=== PATIENT | female | born 1970 | race Caucasian/White ===

== ENCOUNTER 2016-07-23 13:33 | Emergency (ER) | END 2016-07-23 13:52 | disposition left against medical advice (07) | LOC: ED 13:33 | DX: J02.9 Acute pharyngitis, unspecified (principal) ==

== ENCOUNTER 2016-07-24 13:48 | Emergency (ER) ==
[2016-07-24 13:54] VITALS: BP 136/66
--- NOTE | 2016-07-24 15:01 | PROVIDER DOCUMENTATION ---
HPI-EENT General - General Chief Complaint: Flu Symptoms Stated Complaint: sore throat/headache Time Seen by Provider: 07/24/16 14:55 Source: patient Allergies/Adverse Reactions: Patient Allergies Allergy/AdvReac Type Severity Reaction Status Date / Time acetaminophen Allergy NAUSEA Verified 09/27/15 10:18 [From Darvocet-N] propoxyphene napsylate * Allergy NAUSEA Verified 09/27/15 10:18 [From Darvocet-N] azithromycin AdvReac Unknown Verified 09/27/15 10:18 [From Zithromax Z-Tom] tramadol HCl * [From Ultram] AdvReac NAUSEA Verified 09/27/15 10:18 steroids AdvReac ABDOMINAL Uncoded 05/29/16 13:09 PAIN Home Medications: Home Medication List Medication Instructions Recorded Confirmed Last Taken Type Levothyroxine [Synthroid] 75 mg PO DAILY 06/24/15 09/27/15 08/28/15 History Pantoprazole [Protonix] 40 mg PO DAILY 06/24/15 09/27/15 08/28/15 History Acetaminophen with Codeine 1 each PO Q6H PRN PRN #14 tablet 09/27/15 Unknown Rx [Tylenol with Codeine #3 Tablet] Gabapentin [Neurontin] 300 mg PO 5XDAY 09/27/15 09/27/15 Unknown History Ketorolac [Toradol] 10 mg PO Q6H PRN PRN #20 tablet 09/27/15 Unknown Rx Amoxicillin [Amoxil] 875 mg PO BID #14 tablet 05/29/16 Unknown Rx Guaifen/Dextromethorphan/PE 1 each PO TID #30 tablet 05/29/16 Unknown Rx [Deconex Dmx Tablet] Methylprednisolone [Medrol Dosepak] 4 mg PO DIRECTED #1 package 05/29/16 Unknown Rx Amoxicillin [Amoxil] 500 mg PO BID #20 capsule 07/24/16 Unknown Rx - History of Present Illness-EENT General Nature of Presenting Problem: 46 y/o WF c/o 3 days of sore throat and ear pain. Denies sick contacts. denies cough, congestion or sob. EENT Location: reports: ear (R), ear (L), throat Quality of Pain: reports: aching, stabbing Severity: reports: mild Onset/Duration: reports: 4 days ago Timing: reports: still present Prearrival Treatment: Initiated no prearrival treatment Associated Symptoms: reports: sore throat. denies: change in hearing, cough, drooling, ear drainage, facial pain/swelling, fever, malaise, nasal congestion/ drainage, poor fluid intake, poor solids intake, sinus infection, tooth pain, voice change Review of Systems - Adult - REVIEW OF SYSTEMS - ADULT Constitutional: reports: no symptoms reported. denies: chills, fever, fatique Eyes: reports: no symptoms reported. denies: decreased vision, blurred vision, double vision, eye pain Ears, Nose, Mouth & Throat: reports: see HPI, ear pain, throat pain. denies: sinus problem, nose pain Cardiovascular: reports: no symptoms reported. denies: chest pain Respiratory: reports: no symptoms reported. denies: cough, shortness of breath Gastrointestinal: reports: no symptoms reported. denies: abdominal pain, diarrhea, nausea, vomiting Genitourinary: reports: no symptoms reported. denies: frequency Musculoskeletal: reports: no symptoms reported. denies: muscle aches Integumentary: reports: no symptoms reported. denies: rash Neurological: reports: no symptoms reported. denies: headache/migraines Psychiatric: reports: no symptoms reported Endocrine: reports: no symptoms reported Hematologic/Lymphatic: reports: no symptoms reported Allergic/Immunologic: reports: no symptoms reported All Other Systems: Reviewed and Negative Past History - Adult - PAST MEDICAL HISTORY-ADULT Review of Records: reports: Old Records Reviewed, Nursing Assessment Review, Medications Reviewed, Social history reviewed & non-contributory. Major Childhood Illnesses: reports: denies history Cardiovascular: reports: denies history Respiratory: reports: denies history Gastrointestinal: reports: GERD Obstetrical/Gynecological: reports: denies history Genitourinary: reports: denies history Musculoskeletal: reports: chronic pain, fibromyalgia, neck/back injury Neurological: reports: headaches/migraines, past injury (back pain) Endocrine/Immune: reports: thyroid disorder Other Conditions: reports: denies history - PRIOR SURGERIES/PROCEDURES Surgical/Procedure History: reports: appendectomy, cholecystectomy, hysterectomy , tonsillectomy - IMMUNIZATION STATUS Childhood Immunizations: See Nurse Assessment Flu Vaccine: See Nurse Assessment - FAMILY HISTORY Family History: reviewed, not pertinent - SOCIAL HISTORY Smoking: denies Substance Use: none/never Alcohol Use Frequency: never Physical Exam- EENT - Physical Exam EENT Initial Vital Signs Reviewed: Yes General Appearance: appears well, alert, no apparent distress Eye Exam: bilateral eye: normal inspection, PERRL, EOMI Ear Exam: bilateral ear: auricle normal, canal normal, TM normal Nasal Exam: normal inspection Throat Exam: normal mouth inspection, pharynx tenderness, tonsillar exudate, tonsillar swelling Neck: non-tender, full range of motion, supple, normal inspection, lymphadenopathy (anterior cervical adenopathy) Respiratory: chest non-tender, lungs clear, normal breath sounds, no pleuratic chest pain, no respiratory distress, no accessory muscle use. negative: respiratory distress, decreased breath sounds, accessory muscle use, crackles, rales, rhonchi, wheezing Cardiovascular: normal peripheral pulses, regular rate, rhythm Extremity: normal gait Integumentary: normal color, normal turgor, warm/dry Neurologic: grossly normal, no motor/sensory deficits Psych/Mental Status: normal mood/affect, normal thought content, normal thought process, oriented x 3 Progress - PLAN OF CARE/RESULTS Progress/Plan/Lab Results: Vital Signs Temp Pulse Resp BP Pulse Ox 07/24/16 13:52 98.2 F 105 H 20 136/66 97 acetaminophen [From Darvocet-N] Allergy (Verified 09/27/15 10:18) NAUSEA propoxyphene napsylate * [From Darvocet-N] Allergy (Verified 09/27/15 10:18) NAUSEA azithromycin [From Zithromax Z-Tom] Adverse Reaction (Verified 09/27/15 10:18) Unknown tramadol HCl * [From Ultram] Adverse Reaction (Verified 09/27/15 10:18) NAUSEA steroids Adverse Reaction (Uncoded 05/29/16 13:09) ABDOMINAL PAIN Levothyroxine [Synthroid] 75 mg PO DAILY 06/24/15 Pantoprazole [Protonix] 40 mg PO DAILY 06/24/15 Acetaminophen with Codeine [Tylenol with Codeine #3 Tablet] 1 each PO Q6H PRN PRN #14 tablet 09/27/15 Gabapentin [Neurontin] 300 mg PO 5XDAY 09/27/15 Ketorolac [Toradol] 10 mg PO Q6H PRN PRN #20 tablet 09/27/15 Amoxicillin [Amoxil] 875 mg PO BID #14 tablet 05/29/16 Guaifen/Dextromethorphan/PE [Deconex Dmx Tablet] 1 each PO TID #30 tablet Methylprednisolone [Medrol Dosepak] 4 mg PO DIRECTED #1 package 05/29/16 Amoxicillin [Amoxil] 500 mg PO BID #20 capsule 07/24/16 Orders Category Date Time Status DIRECT STREP Stat Lab 07/24/16 13:59 Completed INFLUENZA SCREEN A/B Stat Lab 07/24/16 13:59 Completed strep positive, flu negative Departure - Departure Time of Disposition Order: 15:00 DIAGNOSIS: Strep pharyngitis Disposition: HOME 01 Certified Medical Emergency: Emergent Condition: Stable Additional Instructions: Motrin for fever ED Follow Up Instructions: You have been treated by a care provider in the Emergency Department. These instructions are being provided to you so you can have an understanding of how to care for yourself upon discharge. Upon discharge from the Emergency Department, you are responsible for making arrangements for follow-up care by a physician of your choice. Take all prescribed medications as directed. Return to the Emergency Department immediately for any new or worsening symptoms. You may call the Physician Referral phone number at [phone] to obtain a list of Physicians who are taking new patients. Prescriptions: Amoxicillin [Amoxil] 500 mg PO BID #20 capsule Referrals: Natacha Jarquin MD [Primary Care Provider] - Attestation - Physician/ ARABELLA Attestation Patient care was provided by Advanced Practice Provider:: Yes Advanced Practice Provider:: Zoya Cooper Advanced Practice Provider documentation review:: The Mid-level provider documentation, treatment plan and medical decision making was reviewed by the physician who agrees with all treatment and medical decision making by the [facility].
== END 2016-07-24 15:38 | disposition home or self-care (01) ==
LOC: ED 13:48
DX: J02.0 Streptococcal pharyngitis (principal); R51 Headache; H92.03 Otalgia, bilateral; R22.1 Localized swelling, mass and lump, neck; R59.0 Localized enlarged lymph nodes; G89.29 Other chronic pain; M79.7 Fibromyalgia; K21.9 Gastro-esophageal reflux disease without esophagitis; E07.9 Disorder of thyroid, unspecified; Z79.899 Other long term (current) drug therapy
CPT/HCPCS: 87430; 87804

== ENCOUNTER 2016-08-04 21:02 | Emergency (ER) ==
--- NOTE | 2016-08-04 21:54 | PROVIDER DOCUMENTATION ---
HPI-EENT General - General Chief Complaint: Sore Throat Stated Complaint: SORE THROAT Time Seen by Provider: 08/04/16 21:44 Source: patient Allergies/Adverse Reactions: Patient Allergies Allergy/AdvReac Type Severity Reaction Status Date / Time acetaminophen Allergy NAUSEA Verified 07/24/16 15:33 [From Darvocet-N] propoxyphene napsylate * Allergy NAUSEA Verified 07/24/16 15:33 [From Darvocet-N] azithromycin AdvReac Unknown Verified 07/24/16 15:33 [From Zithromax Z-Tom] tramadol HCl * [From Ultram] AdvReac NAUSEA Verified 07/24/16 15:33 steroids AdvReac ABDOMINAL Uncoded 05/29/16 13:09 PAIN Home Medications: Home Medication List Medication Instructions Recorded Confirmed Last Taken Type Levothyroxine [Synthroid] 75 mg PO DAILY 06/24/15 07/24/16 07/24/16 06:30 History Pantoprazole [Protonix] 40 mg PO DAILY 06/24/15 07/24/16 07/24/16 06:30 History Gabapentin [Neurontin] 300 mg PO HS 09/27/15 07/24/16 07/23/16 22:00 History Amoxicillin [Amoxil] 500 mg PO BID #20 capsule 07/24/16 Unknown Rx Amoxicillin/Pot Clavulanate 875 mg PO Q12HR #14 tablet 08/04/16 Unknown Rx [Augmentin] Benzonatate [Tessalon Perle] 100 mg PO Q12H PRN PRN #10 capsule 08/04/16 Unknown Rx - History of Present Illness-EENT General EENT Location: reports: throat Quality of Pain: reports: sharp Severity: reports: moderate Onset/Duration: reports: last week Timing: reports: getting worse Prearrival Treatment: Initiated no prearrival treatment, Initiated prescription meds (Pt stopped taking amoxicillin due to side effects. Pt requesting augmentin now.) Associated Symptoms: reports: cough, sore throat Other injuries?: denies: neck, head, back, other Locality of Occurance: Home Similar Symptoms Previously?: Yes Recently seen or treated by another doctor?: Yes - Eyes Eye Problem Symptoms: denies: eye pain, decrease vision, blurred vision, double vision, curtain, other, burning, itching, sensitivity to light, redness, matting , orbital swelling, eyelid swelling, foreign body sensation - Ears Ear Problem Symptoms: reports: none - Throat/Dental Throat/Dental Problem Symptoms: reports: sore throat Recently seen a dentist or have an appointment?: No Review of Systems - Adult - REVIEW OF SYSTEMS - ADULT Constitutional: reports: see HPI. denies: no symptoms reported, chills, fever, fatique, night sweats, weight gain, weight loss, other Eyes: reports: no symptoms reported. denies: see HPI, discharge, dry eyes, decreased vision, blurred vision, double vision, eye pain, redness, other Ears, Nose, Mouth & Throat: reports: see HPI, throat pain. denies: no symptoms reported, ear discharge, ear pain, hearing loss, tinnitus, epistaxis, sinus problem, nose pain, loose teeth, mouth/dental pain, mouth swelling, hoarseness, throat swelling, other Cardiovascular: reports: no symptoms reported. denies: see HPI, chest pain, edema, heart murmur, irregular heart rate, orthopnea, palpitations, poor circulation, PND, syncope, other Respiratory: reports: see HPI, cough. denies: no symptoms reported, chronic cough, dyspnea on exertion, excessive sputum production, hemoptysis, pleurisy, shortness of breath, wheezing, other Gastrointestinal: reports: no symptoms reported. denies: see HPI, abdominal pain, hematemesis, constipation, diarrhea, difficulty swallowing, frequent heartburn, nausea, poor appetite, rectal bleeding, vomiting, other Genitourinary: reports: no symptoms reported. denies: see HPI, dysuria, discharge, frequency, flank pain, frequent UTI's, hematuria, hesitency, incontinence, urinary retention, urgency, other All Other Systems: Reviewed and Negative Past History - Adult - PAST MEDICAL HISTORY-ADULT Review of Records: reports: Old Records Reviewed, Nursing Assessment Review, Medications Reviewed, Social history reviewed & non-contributory. Major Childhood Illnesses: reports: denies history Cardiovascular: reports: denies history Respiratory: reports: denies history Gastrointestinal: reports: GERD Obstetrical/Gynecological: reports: denies history Genitourinary: reports: denies history Musculoskeletal: reports: chronic pain, fibromyalgia, neck/back injury Neurological: reports: headaches/migraines, past injury (back pain) Endocrine/Immune: reports: thyroid disorder Other Conditions: reports: denies history - PRIOR SURGERIES/PROCEDURES Surgical/Procedure History: reports: appendectomy, cholecystectomy, hysterectomy , tonsillectomy - IMMUNIZATION STATUS Childhood Immunizations: See Nurse Assessment Flu Vaccine: See Nurse Assessment - FAMILY HISTORY Family History: reviewed, not pertinent Physical Exam- EENT - Physical Exam EENT Initial Vital Signs Reviewed: Yes General Appearance: appears well, alert, no apparent distress. negative: mild distress, moderate distress, severe distress, cachetic, obese, thin, anxious, lethargic, slow to respond, obtunded, combative, other Eye Exam: bilateral eye: normal inspection Ear Exam: bilateral ear: auricle normal Nasal Exam: normal inspection. negative: active bleeding, discharge, dried blood, foreign body, sinus tenderness, other Throat Exam: normal mouth inspection, pharynx tenderness. negative: pharynx normal, dental tenderness, excessive drooling, foreign body, mandibular swelling , maxillary swelling, pharynx swelling, tongue swollen, tonsillar exudate, tonsillar swelling, trismus, uvula swelling, voice changes, other Neck: non-tender, full range of motion, supple, normal inspection. negative: Brudzinski's sign, carotid bruit, C-spine tenderness, limited range of motion, lymphadenopathy, meningismus, trachial deviation, tender lateral, tender midline , thyromegaly, other Respiratory: chest non-tender, lungs clear, normal breath sounds, no pleuratic chest pain, no respiratory distress, no accessory muscle use. negative: respiratory distress, decreased breath sounds, accessory muscle use, crackles, rales, rhonchi, stridor, wheezing, dull on percussion, prolonged expiration, pain on inspiration, plerual rub, retractions, splinting, decreased rate, increased rate, crepitus, other Cardiovascular: normal peripheral pulses, regular rate, rhythm, no edema, no gallop, no JVD, no murmur. negative: JVD, bradycardia, tachycardia, diastolic murmur, systolic murmur, gallop/S3, gallop/S4, extra beats, friction rub, irregularly irregular, PMI displaced laterally, other Abdominal Exam: normal bowel sounds, non tender, soft, no organomegaly, no pulsatile mass. negative: abdominal bruit, abnormal bowel sounds, distended, guarding, rigid, rebound, tenderness, hernia, mass, hepatomegaly, spleenomegaly , McBurney's point tenderness, Carter's sign, obturator sign, prominent aortic pulsations, psoas, Rovsing's sign, other Lymphatic: no adenopathy. negative: axilla node tender, cervical node tenderness, inguinal node tender, enlargement, striations, streaking, other Back Exam: normal inspection, no CVA tenderness, no vertebral tenderness. negative: CVA tenderness, decreased range of motion, ecchymosis, kyphosis, lordosis, muscle spasm, scoliosis, swelling, vertebral tenderness, other Extremity: normal range of motion, non-tender, normal gait, normal inspection, no pedal edema, no calf tenderness, normal capillary refill. negative: pelvis stable, abnormal NV exam, calf tenderness, deformity, erythema, inflammation, joint effusion, pulse deficit, pedal edema, slow capillary refill, swelling, tenderness, other Integumentary: normal color, normal turgor, warm/dry. negative: abrasion(s), blanching, cyanosis, diaphoresis, decubitus, dependent lividity, ecchymosis, embolic lesions, erythema, signs of IVDA, jaundice, laceration(s), mottled, pallor, petechiae, purpura, rash, swelling, tenderness, warm, zoster-like rash, other Neurologic: grossly normal Psych/Mental Status: normal mood/affect, normal thought content, normal thought process, oriented x 3. negative: disoriented x 3, anxious, disheveled, depressed affect, paranoid, tearful, other Progress - PLAN OF CARE/RESULTS Progress/Plan/Lab Results: Orders Category Date Time Status DIRECT STREP Stat Lab 08/04/16 21:20 Completed Vital Signs Temp Pulse Resp BP Pulse Ox 08/04/16 21:11 98.1 F 88 18 129/94 98 acetaminophen [From Darvocet-N] Allergy (Verified 07/24/16 15:33) NAUSEA propoxyphene napsylate * [From Darvocet-N] Allergy (Verified 07/24/16 15:33) NAUSEA azithromycin [From Zithromax Z-Tom] Adverse Reaction (Verified 07/24/16 15:33) Unknown tramadol HCl * [From Ultram] Adverse Reaction (Verified 07/24/16 15:33) NAUSEA steroids Adverse Reaction (Uncoded 05/29/16 13:09) ABDOMINAL PAIN Levothyroxine [Synthroid] 75 mg PO DAILY 06/24/15 Pantoprazole [Protonix] 40 mg PO DAILY 06/24/15 Gabapentin [Neurontin] 300 mg PO HS 09/27/15 Amoxicillin [Amoxil] 500 mg PO BID #20 capsule 07/24/16 Amoxicillin/Pot Clavulanate [Augmentin] 875 mg PO Q12HR #14 tablet 08/04/16 Benzonatate [Tessalon Perle] 100 mg PO Q12H PRN PRN #10 capsule 08/04/16 Departure - Departure Time of Disposition Order: 21:49 DIAGNOSIS: Pharyngitis Qualifiers: Pharyngitis/tonsillitis etiology: unspecified etiology Qualified Code(s): J02.9 - Acute pharyngitis, unspecified Disposition: HOME 01 Certified Medical Emergency: Emergent Condition: Stable Additional Instructions: ED Follow Up Instructions: You have been treated by a care provider in the Emergency Department. These instructions are being provided to you so you can have an understanding of how to care for yourself upon discharge. Upon discharge from the Emergency Department, you are responsible for making arrangements for follow-up care by a physician of your choice. Take all prescribed medications as directed. Return to the Emergency Department immediately for any new or worsening symptoms. You may call the Physician Referral phone number at [phone] to obtain a list of Physicians who are taking new patients. Prescriptions: Amoxicillin/Pot Clavulanate [Augmentin] 875 mg PO Q12HR #14 tablet Benzonatate [Tessalon Perle] 100 mg PO Q12H PRN PRN #10 capsule PRN Reason: Cough Attestation - Physician/ ARABELLA Attestation Patient care was provided by Advanced Practice Provider:: Yes Advanced Practice Provider:: Azeem Bowman Advanced Practice Provider documentation review:: The Mid-level provider documentation, treatment plan and medical decision making was reviewed by the physician who agrees with all treatment and medical decision making by the [facility]. Physician Attestation - Physician Attestation I, the provider, attest to the following statement:: Azeem Bowman Physician documentation Attestation:: This documentation recorded by the scribe accurately reflects the service I personally performed and the decisions made by me.
[2016-08-04 22:15] VITALS: BP 131/79
== END 2016-08-04 22:12 | disposition home or self-care (01) ==
LOC: ED 21:02
DX: J02.9 Acute pharyngitis, unspecified (principal); K21.9 Gastro-esophageal reflux disease without esophagitis; G89.29 Other chronic pain; M79.7 Fibromyalgia; E07.9 Disorder of thyroid, unspecified; Z79.899 Other long term (current) drug therapy
CPT/HCPCS: 87081; 87430; 99283